=== PATIENT | male | born 1935 | race Caucasian/White ===

== ENCOUNTER → 2017-11-18 | Outpatient (CLI) | payer MEDICARE ==
[~2017-11-18] MED LIST: CENTTAB9 PO; LEVO100T5 PO; OCUVTAB4 PO; PREV30CA36 PO; [UNRECOGNIZED DRUG - CODE] PO
[2017-11-18 14:22] LABS: PROTHROMBIN TIME - PATIENT 10.2 SEC (9.8-11.6)
[2017-11-18 14:45] LABS: CREATININE 1.25 MG/DL (0.60-1.30)
== END ==
LOC: CPRE 12:43
PROVIDERS: ATTEND Orthopaedic Surgery Sports Medicine
DX: Z01.812 Encounter for preprocedural laboratory examination (principal); M17.11 Unilateral primary osteoarthritis, right knee; M25.50 Pain in unspecified joint; Z79.01 Long term (current) use of anticoagulants; Z96.60 Presence of unspecified orthopedic joint implant
CPT/HCPCS: 36415; 82565; 85610; 85652

== ENCOUNTER 2017-11-28 06:35 | Inpatient (IN) | payer OTHER, MEDICARE ==
[~2017-11-28] VITALS: Ht 198.1 cm; Wt 105.6 kg
[~2017-11-28 06:35] MED LIST changes: -CENTTAB9 PO; -[UNRECOGNIZED DRUG - CODE] PO
[2017-11-28] MEDS ORDERED: ceFAZolin 2 GM PREMIX 50 ML IV SCH (07:15)
[2017-11-28] MEDS ORDERED: VANCOMYCIN 1000 MG/NS 250 ML (for <70 kg) IV SCH ×2 (07:15)
[2017-11-28] MEDS ORDERED: DEXAMETHASONE SOD PHOS 20 MG/5 ML VIAL IV SCH (07:15)
[2017-11-28] MEDS ORDERED: POVIDONE IODINE 5% (ANTISEPSIS KIT) 4 APPLICATIONS EACH NARE PRN (07:15)
[2017-11-28] MEDS ORDERED: CHLORHEXIDINE GLUCONATE 4% SOLN 120 ML BTL TOPICAL SCH (07:15)
[2017-11-28] MEDS ORDERED: CHLORHEXIDINE GLUCONATE 2 % 1 PACK (2 CLOTHS) TOPICAL PRN (07:15)
[2017-11-28] MEDS ORDERED: LACTATED RINGER'S 1000 ML IV PRN (07:15)
[2017-11-28] MEDS ORDERED: METOPROLOL TARTRATE 25 MG TAB PO PRN (07:15)
[2017-11-28] MEDS ORDERED: POVIDONE IODINE 7.5% SCRUB 118 ML BOTTLE TOPICAL SCH (07:15)
[2017-11-28] MEDS ORDERED: SODIUM CHLORID 0.9% 500 ML IV PRN (07:15)
[2017-11-28] MEDS ORDERED: ASPI81CH6 CHEW (07:16)
[2017-11-28] MEDS ORDERED: HYDR-3288 PO (07:17)
[2017-11-28] MEDS ORDERED: MORPHINE SULFATE 4 MG/ML INJ IV PUSH PRN (07:45)
[2017-11-28] MEDS ORDERED: ONDANSETRON HCL 4 MG/2 ML VIAL IVP PRN (07:45)
[2017-11-28] MEDS ORDERED: BISACODYL 10 MG SUPP RECTAL PRN (08:00)
[2017-11-28] MEDS ORDERED: diphenhydrAMINE HCL 50 MG/ML VIAL IV PUSH PRN (08:00)
[2017-11-28] MEDS ORDERED: Post-op Orders (for Pharmacy) XX ONE (08:00)
[2017-11-28 08:14] VITALS: PULSE 60
[2017-11-28] MEDS ORDERED: BUPIVACAINE LIPOSOME PF 1.3% 20 ML VIAL ONE (08:29)
[2017-11-28] MEDS ORDERED: FAT EMULSION 20% INJ 0 ML ONE (08:32)
[2017-11-28] MEDS: PANTOPRAZOLE SOD 40 MG DELAYED RELEASE TAB PO SCH (09:00)
[2017-11-28] MEDS ORDERED: GENTAMICIN SULFATE 80 MG/2 ML VIAL ONE (09:29)
[2017-11-28] MEDS ORDERED: VANCOMYCIN HCL 1000 MG VIAL ONE (09:48)
[2017-11-28] MEDS ORDERED: SODIUM CHLOR 0.9% 250 ML INJ 250 ML ONE (09:48)
[2017-11-28] MEDS ORDERED: SODIUM CHLORIDE 0.9% IV SCH (10:00)
[2017-11-28] MEDS ORDERED: TRANEXAMIC PERI-ARTICULAR 3,000 MG/NS 100 ML P-ARTICULR SCH ×2 (10:00)
[2017-11-28] MEDS ORDERED: ROPIVACAINE PERI-ARTICULAR INJECTION. P-ARTICULR SCH ×5 (10:00)
[2017-11-28] MEDS ORDERED: TRANEXAMIC ACID IV SCH (10:00)
[2017-11-28] MEDS ORDERED: DO NOT ADM ANY ANTICOAGULANT DRUGS PRN (11:43)
[2017-11-28] MEDS ORDERED: MIDAZOLAM HCL 2 MG/2 ML VIAL ONE (11:48)
[2017-11-28] MEDS ORDERED: *morphine SULFATE 10 MG/ML PERIprocedure ONLY ONE ×2 (11:50→12:08)
[2017-11-28] MEDS ORDERED: DEXAMETHASONE SOD PHOS 4 MG/ML VIAL IV ONE (12:00)
[2017-11-28] MEDS ORDERED: ONDANSETRON HCL 4 MG/2 ML VIAL IV ONE (12:00)
[2017-11-28] MEDS ORDERED: LACTATED RINGER'S 1000 ML INJ 1,000 ML IV ONE (12:00)
[2017-11-28] MEDS ORDERED: PROPOFOL 200 MG/20 ML AMP IV ONE (12:00)
[2017-11-28] MEDS ORDERED: ROCURONIUM INJ 50 MG/5 ML SYRINGE IV PUSH ONE (12:00)
[2017-11-28] MEDS ORDERED: LIDOCAINE HCL 1% PF 5 ML SYRINGE OTHER ONE (12:00)
--- NOTE | 2017-11-28 12:35 | RADRPT ---
EXAM DATE/TIME: 11/28/2017 12:11 [facility] COMPARISON: No previous studies available for comparison. INDICATIONS : Post op, right knee replacement. MEDICAL HISTORY : None. SURGICAL HISTORY : None. ENCOUNTER: Initial ACUITY: 1 day PAIN SCORE: 0/10 LOCATION: Right knee FINDINGS: Postoperative right total knee replacement. Normal alignment. Air in the soft tissues. CONCLUSION: 1. Postoperative right total knee replacement. No complications identified. Jose Plata MD on November 28, 2017 at 12:32 Board Certified Radiologist. This report was verified electronically.
[2017-11-28] MEDS ORDERED: HYDROmorphone HCL PF 2 MG/ML VIAL ONE (12:46)
[2017-11-28] MEDS: SODIUM CHLOR 0.9% 1000 ML INJ 1,000 ML IV SCH ×3 (13:00→21:39)
--- NOTE | 2017-11-28 13:50 | PD.CONS ---
[facility] By [facility] Reason for Consult Medical Management Primary Care Physician Hai Clayton M.D. 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 Patient was seen postoperatively in PACU and He has no complaint of chest pain or shortness of breath. Review of Systems Except as stated in HPI: all other systems reviewed are Neg Past Family Social History Allergies: Coded Allergies: No Known Allergies (Verified Allergy, Unknown, 11/28/17) Past Medical History Severe right OA Hypothyroidism CAD Past Surgical History back surgeries pacemaker placement Reported Medications See EMR Family History Noncontributory Social History Patient denies tobacco, alcohol or illicit drug intake Physical Exam Vital Signs Vital Signs Date Time Temp Pulse Resp B/P (MAP) Pulse Ox O2 Delivery O2 Flow Rate FiO2 11/28/17 13:16 15 11/28/17 13:00 97.5 60 15 120/61 (80) 97 Nasal Cannula 2 11/28/17 12:45 60 15 119/59 (79) 96 Nasal Cannula 2 11/28/17 12:30 60 16 121/60 (80) 100 Nasal Cannula 3 11/28/17 12:15 60 15 123/62 (82) 99 Nasal Cannula 3 11/28/17 12:13 15 11/28/17 12:00 60 15 126/67 (86) 98 Nasal Cannula 3 11/28/17 11:55 15 11/28/17 11:55 15 11/28/17 11:45 69 15 131/76 (94) 100 Nasal Cannula 4 11/28/17 11:40 97.8 72 20 130/73 (92) 96 Nasal Cannula 4 11/28/17 08:14 60 11/28/17 08:14 100 Nasal Cannula 2 11/28/17 07:15 98.5 71 16 143/85 (104) 100 Physical Exam GENERAL: This is a well-nourished, well-developed patient, in no apparent distress. SKIN: No rashes, ecchymoses or lesions. Cool and dry. HEAD: Atraumatic. Normocephalic. No temporal or scalp tenderness. EYES: Pupils equal round and reactive. Extraocular motions intact. No scleral icterus. No injection or drainage. ENT: Nose without bleeding, purulent drainage or septal hematoma. Throat without erythema, tonsillar hypertrophy or exudate. Uvula midline. Airway patent. NECK: Trachea midline. No JVD or lymphadenopathy. Supple, nontender, no meningeal signs. CARDIOVASCULAR: Regular rate and rhythm without murmurs, gallops, or rubs. RESPIRATORY: Clear to auscultation. Breath sounds equal bilaterally. No wheezes , rales, or rhonchi. GASTROINTESTINAL: Abdomen soft, non-tender, nondistended. No hepato-splenomegaly , or palpable masses. No guarding. MUSCULOSKELETAL: Extremities without clubbing, cyanosis, or edema. s/p right knee surgery; dressing in place-neurovascular intact NEUROLOGICAL: Awake and alert. Cranial nerves II through XII intact. Motor and sensory grossly within normal limits. Five out of 5 muscle strength in all muscle groups. Normal speech. Imaging Last Impressions Knee X-Ray 11/28/17 0714 Signed Impressions: Service Date/Time: Tuesday, November 28, 2017 12:11 - CONCLUSION: 1. Postoperative right total knee replacement. No complications identified. Jose Plata MD Assessment and Plan Assessment and Plan 82 years old male with s/p Right total knee arthroplasty Management per Ortho Continue with current post op management DVT prophylaxis per orthopedic surgery PT consult to treat and eval Hypothyroidism Continue with Synthroid CAD Continue with outpatient medications DVT prophylaxis: Lovenox Thank you for this consultation Code Status Full code Discussed Condition With Patient, PACU nurse Melchor Mcfarland MD Nov 28, 2017 13:49
[2017-11-28 16:00] VITALS: BP 144/73; PULSE 62; RESP 16; TEMP 96.2; O2SAT 98
--- NOTE | 2017-11-28 16:10 | HHI.DCPOC ---
Discharge Care Plan Diagnosis: (1) Primary localized osteoarthrosis, lower leg Your Health Problems Are: Difficulty with ADL Goals to Promote Your Health * To prevent worsening of your condition and complications * To maintain your health at the optimal level Directions to Meet Your Goals Take your medications as prescribed Follow your dietary instruction Follow activity as directed Keep your appointments as scheduled Take your immunizations and boosters as scheduled If your symptoms worsen call your PCP, if no PCP go to Urgent Care Center or Emergency Room Smoking is Dangerous to Your Health. Avoid second hand smoke Call the 24-hour hour crisis hotline for domestic abuse at Jason Lehman Nov 28, 2017 16:10
[2017-11-28] MEDS ORDERED: CPMMACHINE (16:11)
[2017-11-28] MEDS ORDERED: WALKER WHEELS/F1 MIS (16:11)
--- NOTE | 2017-11-28 16:11 | HHI.FF ---
Face to Face Verification Diagnosis: (1) Primary localized osteoarthrosis, lower leg Physical Therapy Gait training, Safety evaluation, Transfer training, bed to chair Knee: Total knee, Protocol: Right, Full weight bearing Right LE Weight Bearing: WB as tolerated Nursing RN: 3 days/week x 2 weeks Nursing: Dressing changes Dressing Changes: Daily dressing change I have seen patient Bertram Frederick on 11/28/17. My clinical findings support the need for the requested home health care services because: Limited ability to care for self High risk of falls I certify that my clinical findings support that this patient is homebound because: Post-op weakness Unsteady gait/balance Jason Lehman Nov 28, 2017 16:11
--- NOTE | 2017-11-28 16:13 | PD.ORT.PN ---
Objective Vitals Vital Signs Date Time Temp Pulse Resp B/P (MAP) Pulse Ox O2 Delivery O2 Flow Rate FiO2 11/28/17 14:15 97.6 61 16 120/58 (78) 96 Room Air 11/28/17 14:00 63 16 122/60 (80) 94 Room Air 11/28/17 13:30 62 16 121/59 (79) 99 Nasal Cannula 2 11/28/17 13:16 15 11/28/17 13:00 97.5 60 15 120/61 (80) 97 Nasal Cannula 2 11/28/17 12:45 60 15 119/59 (79) 96 Nasal Cannula 2 11/28/17 12:30 60 16 121/60 (80) 100 Nasal Cannula 3 11/28/17 12:15 60 15 123/62 (82) 99 Nasal Cannula 3 11/28/17 12:13 15 11/28/17 12:00 60 15 126/67 (86) 98 Nasal Cannula 3 11/28/17 11:55 15 11/28/17 11:55 15 11/28/17 11:45 69 15 131/76 (94) 100 Nasal Cannula 4 11/28/17 11:40 97.8 72 20 130/73 (92) 96 Nasal Cannula 4 11/28/17 08:14 60 11/28/17 08:14 100 Nasal Cannula 2 11/28/17 07:15 98.5 71 16 143/85 (104) 100 I/O 11/27/17 11/27/17 11/27/17 11/28/17 11/28/17 11/28/17 07:00 15:00 23:00 07:00 15:00 23:00 Intake Total 1640 ml Output Total 600 ml Balance 1040 ml Intake IV Total 1640 ml Output Urine Total 400 ml Estimated Blood Loss 200 ml Imaging Last 24 hours Impressions Knee X-Ray 11/28/17 0714 Signed Impressions: Service Date/Time: Tuesday, November 28, 2017 12:11 - CONCLUSION: 1. Postoperative right total knee replacement. No complications identified. Jose Plata MD Assessment & Plan Ortho Post Op Day #: 0 Problem List: Assessment and Plan s/p R TKA POD#0 wbat ok to maintain dressing unless saturated lovenox, d/c on asa81 d/c planning home vs snf rx in chart f/up dr. michel 2 weeks Jason Lehman Nov 28, 2017 16:13
[2017-11-28] MEDS ORDERED: ENALAPRILAT 2.5 MG/2 ML VIAL IV PUSH PRN (16:15)
--- NOTE | 2017-11-28 17:37 | MP ---
cc: Jason Ponce MD DATE OF OPERATION: 11/28/2017 PREOPERATIVE DIAGNOSIS: Right knee osteoarthritis. POSTOPERATIVE DIAGNOSIS: Right knee osteoarthritis. PROCEDURE: Right total knee arthroplasty. SURGEON: Jason Ponce MD LOADING DOCK HELPER: FRITZ Garcia ANESTHESIA: General with a femoral nerve adductor canal block. ESTIMATED BLOOD LOSS: 200 mL TOURNIQUET TIME: 25 minutes at 250 mmHg. COMPLICATIONS: None. IMPLANTS USED: DePuy Attune size 8 posterior stabilized femoral component, size 9 rotating platform tibial baseplate, size 6 mm polyethylene tibial insert, size 41 patella. JUSTIFICATION: This patient is an 82-year-old male with history of severe end-stage osteoarthritis involving the right knee. He has severe disabling pain with standing, walking, ambulation, weight bearing activities and severe pain at rest. He has failed greater than 3 months of nonoperative conservative treatment to include medication therapy, injection, ambulatory assistive aid, home exercise program, activity modification. Patient is not overweight. X-rays of the right knee reveal severe end-stage osteoarthritis, joint space narrowing, subchondral sclerosis, subchondral cyst osteophyte formation with subluxation and deformity. The patient was counseled on risks, benefits and alternatives to a total knee arthroplasty. The risks of surgery were discussed which include but are not limited to anesthesia, bleeding, infection, damage to nerves, blood vessels, pain and stiffness, failure of components, blood clots, pulmonary embolism and even . The patent's pain is severe. She favors the benefits over the risks and did wish to proceed with surgery. PROCEDURE IN DETAIL: Written consent was obtained. The patient was identified by name, taken to the operating room and placed supine on the operating room table. General anesthesia was administered as well as 2 grams of IV Ancef, 1 gram of IV vancomycin. He did receive a femoral nerve adductor canal block. A well-padded tourniquet was placed on the right thigh. The right lower extremity was prepped and draped using Isopropyl alcohol, Hibiclens solution and ChloraPrep solution. After a timeout was performed, an Esmarch bandage was used to exsanguinate the right lower extremity. The tourniquet was inflated to 250 mmHg. A longitudinal incision was made over the anterior aspect of the right knee. A medial parapatellar arthrotomy was performed. The patella was everted and patella resection guide was used to resect 9 mm of patella. A size 41 mm guide was placed, 3 drill holes were placed and a 41 mm trial fit well. Attention was turned to the femur where an intramedullary guide was placed and the distal femoral guide was set to remove 11 mm of distal femur. An oscillating saw was used to perform a distal femoral cut. Attention was turned to the tibia where an extramedullary tibial guide was set to remove 6 mm off the lowest portion of the medial tibial plateau. Tibial guide was pinned in place and a tibial cut was performed. A 5 mm spacer block showed full extension. Attention was turned back to the femur where the AP sizer measured a size 8. The anterior reference 3-degree external rotator guide was used to pin a size [address] The anterior, posterior and chamfer cuts were performed. A size 8 PCL box guide was pinned in place and PCL was box cut with an oscillating saw. The medial lateral meniscus remnants were removed as well as bone, soft tissue and debris from posterior portion of the knee. A size 9 tibia baseplate was pinned in place and tibia was drilled to punch. Trial components were evaluated and final components were pinned in place. With the current components, the leg achieved full extension to 0 degrees and flexion to 140. No evidence of tibial lift-off. Varus-valgus balance appeared appropriate and symmetric and the patella was noted to track centrally. With the tourniquet deflated, Bovie cautery was used for hemostasis. The surgical wound was thoroughly irrigated with sterile saline, pulse lavage, antibiotic impregnated solution. The arthrotomy incision was closed with #1 Vicryl sutures, subcutaneous layer with 2-0 Vicryl suture. The skin was closed with Dermabond. Sterile dressing was applied. The patient tolerated the procedure well. There were no intraoperative complications noted. Reji Lehman, physician teacher's assistant certified, was present during the entire procedure to include patient positioning and the procedure itself. The medical necessity of a physician teacher's assistant was indicated in this case due to complexity of the procedure. He assisted with appropriate manipulation of the leg and also retraction of muscle, tendon, bone and neurovascular structures. He assisted with preparation of bone, also implantation of the prosthetic replacement. MD DAMIEN Dejesus//berenice , 11:21 AM , 05:13 PM
[2017-11-28 19:36] VITALS: BP 124/59; PULSE 67; RESP 18; TEMP 96.7; O2SAT 95
[2017-11-28] MEDS ORDERED: ZOLPIDEM TARTRATE 5 MG TAB PO PRN (21:00)
[2017-11-28 23:39] VITALS: BP 104/65; PULSE 68; RESP 18; TEMP 97.1; O2SAT 97
[2017-11-29] MEDS: SODIUM CHLOR 0.9% 1000 ML INJ 1,000 ML IV SCH ×2 (00:35→19:21)
[2017-11-29] MEDS: ACETAMINOPHEN/HYDROcodone 325 MG/7.5 MG TAB PO PRN ×5 (02:11→21:45)
[2017-11-29 03:50] VITALS: BP 104/61; PULSE 61; RESP 18; TEMP 97; O2SAT 96
[2017-11-29] MEDS: LEVOTHYROXINE SODIUM 100 MCG TAB PO SCH (05:17)
[2017-11-29 06:59] LABS: HEMATOCRIT 29.1 % (39.0-51.0); HEMOGLOBIN 10.1 GM/DL (13.0-17.0); MEAN CELL VOLUME 93.3 FL (80.0-100.0); MEAN CORPUSCULAR HEMOGLOBIN 32.3 PG (27.0-34.0); MEAN CORPUSCULAR HGB CONC 34.7 % (32.0-36.0); PLATELET COUNT 152 TH/MM3 (150-450); RED BLOOD COUNT 3.12 MIL/MM3 (4.50-5.90); RED CELL DISTRIBUTION WIDTH 13.6 % (11.6-17.2); WHITE BLOOD COUNT 9.3 TH/MM3 (4.0-11.0)
[2017-11-29 07:26] LABS: BICARBONATE 24.6 MEQ/L (21.0-32.0); CALCIUM 8.4 MG/DL (8.5-10.1); CREATININE 1.27 MG/DL (0.60-1.30)
[2017-11-29 08:00] VITALS: BP 131/67; PULSE 75; RESP 16; TEMP 98.5; O2SAT 99
[2017-11-29] MEDS: PANTOPRAZOLE SOD 40 MG DELAYED RELEASE TAB PO SCH (08:54)
--- NOTE | 2017-11-29 11:04 | HHI.PR ---
Subjective Remarks Patient seen and examined Pain well tolerated Vitals stable Family by the bedside Objective Vitals Vital Signs Date Time Temp Pulse Resp B/P (MAP) Pulse Ox O2 Delivery O2 Flow Rate FiO2 11/29/17 08:00 98.5 75 16 131/67 (88) 99 11/29/17 03:50 97.0 61 18 104/61 (75) 96 11/28/17 23:39 97.1 68 18 104/65 (78) 97 11/28/17 19:36 96.7 67 18 124/59 (80) 95 11/28/17 16:00 96.2 62 16 144/73 (96) 98 11/28/17 14:15 97.6 61 16 120/58 (78) 96 Room Air 11/28/17 14:00 63 16 122/60 (80) 94 Room Air 11/28/17 13:30 62 16 121/59 (79) 99 Nasal Cannula 2 11/28/17 13:16 15 11/28/17 13:00 97.5 60 15 120/61 (80) 97 Nasal Cannula 2 11/28/17 12:45 60 15 119/59 (79) 96 Nasal Cannula 2 11/28/17 12:30 60 16 121/60 (80) 100 Nasal Cannula 3 11/28/17 12:15 60 15 123/62 (82) 99 Nasal Cannula 3 11/28/17 12:13 15 11/28/17 12:00 60 15 126/67 (86) 98 Nasal Cannula 3 11/28/17 11:55 15 11/28/17 11:55 15 11/28/17 11:45 69 15 131/76 (94) 100 Nasal Cannula 4 11/28/17 11:40 97.8 72 20 130/73 (92) 96 Nasal Cannula 4 I/O 11/28/17 11/28/17 11/28/17 11/29/17 11/29/17 11/29/17 07:00 15:00 23:00 07:00 15:00 23:00 Intake Total 1640 ml 100 ml 1600 ml Output Total 600 ml 250 ml Balance 1040 ml 100 ml 1350 ml Intake IV Total 1640 ml 100 ml 1600 ml Output Urine Total 400 ml 250 ml Estimated Blood Loss 200 ml Result Diagram: 11/29/17 0600 11/29/17 0600 Imaging Last Impressions Knee X-Ray 11/28/17 0714 Signed Impressions: Service Date/Time: Tuesday, November 28, 2017 12:11 - CONCLUSION: 1. Postoperative right total knee replacement. No complications identified. Jose Plata MD Objective Remarks GENERAL: nad SKIN: Warm and dry. HEAD: Normocephalic. EYES: No scleral icterus. No injection or drainage. NECK: Supple, trachea midline. No JVD or lymphadenopathy. CARDIOVASCULAR: Regular rate and rhythm without murmurs, gallops, or rubs. RESPIRATORY: Breath sounds equal bilaterally. No accessory muscle use. GASTROINTESTINAL: Abdomen soft, non-tender, nondistended. MUSCULOSKELETAL: No cyanosis, or edema. BACK: Nontender without obvious deformity. No CVA tenderness. A/P Assessment and Plan 82 years old male with s/p Right total knee arthroplasty Management per Ortho Continue with current post op management DVT prophylaxis per orthopedic surgery PT consult to treat and eval Hypothyroidism Continue with Synthroid CAD Continue with outpatient medications DVT prophylaxis: Melchor Walker MD Nov 29, 2017 11:04
[2017-11-29 12:00] VITALS: BP 108/52; PULSE 68; RESP 16; TEMP 98.2; O2SAT 98
[2017-11-29] MEDS: ENOXAPARIN SODIUM 40 MG/0.4 ML SYRINGE SQ SCH (12:26)
[2017-11-29 16:00] VITALS: BP 149/72; PULSE 70; RESP 16; TEMP 98; O2SAT 96
--- NOTE | 2017-11-29 17:49 | HHI.PR ---
Subjective Remarks pain controlled. walking. using cpm Objective Vital Signs Date Time Temp Pulse Resp B/P (MAP) Pulse Ox O2 Delivery O2 Flow Rate FiO2 11/29/17 12:00 98.2 68 16 108/52 (70) 98 11/29/17 08:00 98.5 75 16 131/67 (88) 99 11/29/17 03:50 97.0 61 18 104/61 (75) 96 11/28/17 23:39 97.1 68 18 104/65 (78) 97 11/28/17 19:36 96.7 67 18 124/59 (80) 95 I/O 11/28/17 11/28/17 11/28/17 11/29/17 11/29/17 11/29/17 07:00 15:00 23:00 07:00 15:00 23:00 Intake Total 1640 ml 100 ml 1600 ml Output Total 600 ml 250 ml Balance 1040 ml 100 ml 1350 ml Intake IV Total 1640 ml 100 ml 1600 ml Output Urine Total 400 ml 250 ml Estimated Blood Loss 200 ml Result Diagram: 11/29/17 0600 11/29/17 0600 Objective Remarks RLE: dressing CDI, soft compartments, SILT distally Assessment and Plan Physician Attestation s/p R TKA POD#1 doing well wbat ok to maintain dressing unless saturated lovenox, d/c on asa81 SNF tomorrow rx in chart f/up dr. michel 2 weeks Ankush Roque Jr., MD Nov 29, 2017 17:49
[2017-11-29] MEDS: MULTIVITAMINS/MINERALS THERAPEUTIC TAB PO SCH (19:21)
[2017-11-29] MEDS: DOCUSATE SODIUM 100 MG CAP PO SCH (19:21)
[2017-11-29 20:30] VITALS: BP 119/61; PULSE 66; RESP 17; TEMP 98.9; O2SAT 96
[2017-11-30 00:35] VITALS: BP 139/79; PULSE 79; RESP 18; TEMP 99.3; O2SAT 96
[2017-11-30] MEDS: ACETAMINOPHEN/HYDROcodone 325 MG/7.5 MG TAB PO PRN ×6 (03:48→21:17)
[2017-11-30] MEDS: MAGNESIUM HYDROXIDE SUSP 30 ML CUP PO PRN ×2 (05:55→21:11)
[2017-11-30] MEDS: LEVOTHYROXINE SODIUM 100 MCG TAB PO SCH (05:55)
[2017-11-30 08:00] VITALS: BP 117/56; PULSE 75; RESP 16; TEMP 98.6; O2SAT 95
[2017-11-30 08:20] LABS: HEMATOCRIT 26.1 % (39.0-51.0); HEMOGLOBIN 9.1 GM/DL (13.0-17.0); MEAN CELL VOLUME 92.9 FL (80.0-100.0); MEAN CORPUSCULAR HEMOGLOBIN 32.5 PG (27.0-34.0); MEAN CORPUSCULAR HGB CONC 34.9 % (32.0-36.0); MEAN PLATELET VOLUME 8.1 FL (7.0-11.0); PLATELET COUNT 116 TH/MM3 (150-450); RED BLOOD COUNT 2.81 MIL/MM3 (4.50-5.90); RED CELL DISTRIBUTION WIDTH 13.4 % (11.6-17.2); WHITE BLOOD COUNT 6.3 TH/MM3 (4.0-11.0)
[2017-11-30] MEDS: PANTOPRAZOLE SOD 40 MG DELAYED RELEASE TAB PO SCH (08:28)
[2017-11-30] MEDS: MULTIVITAMINS/MINERALS THERAPEUTIC TAB PO SCH ×2 (08:28→21:11)
[2017-11-30] MEDS: DOCUSATE SODIUM 100 MG CAP PO SCH ×2 (08:28→21:11)
[2017-11-30] MEDS: ENOXAPARIN SODIUM 40 MG/0.4 ML SYRINGE SQ SCH (08:29)
[2017-11-30 08:47] LABS: BICARBONATE 26.7 MEQ/L (21.0-32.0); CALCIUM 7.9 MG/DL (8.5-10.1); CREATININE 1.06 MG/DL (0.60-1.30)
--- NOTE | 2017-11-30 09:35 | HHI.PR ---
Subjective Remarks Patient seen and examined States, he has some burning type of pain to his right knee otherwise stable Objective Vitals Vital Signs Date Time Temp Pulse Resp B/P (MAP) Pulse Ox O2 Delivery O2 Flow Rate FiO2 11/30/17 00:35 99.3 79 18 139/79 (99) 96 11/29/17 20:30 98.9 66 17 119/61 (80) 96 11/29/17 16:00 98.0 70 16 149/72 (97) 96 11/29/17 12:00 98.2 68 16 108/52 (70) 98 I/O 11/29/17 11/29/17 11/29/17 11/30/17 11/30/17 11/30/17 07:00 15:00 23:00 07:00 15:00 23:00 Intake Total 1600 ml 1080 ml 360 ml Output Total 250 ml 1200 ml Balance 1350 ml -120 ml 360 ml Intake Oral 1080 ml 360 ml IV Total 1600 ml Output Urine Total 250 ml 1200 ml # Voids 1 1 # Bowel Movements 0 0 Result Diagram: 11/30/1731 11/30/17 0731 Objective Remarks GENERAL: nad SKIN: Warm and dry. HEAD: Normocephalic. EYES: No scleral icterus. No injection or drainage. NECK: Supple, trachea midline. No JVD or lymphadenopathy. CARDIOVASCULAR: Regular rate and rhythm without murmurs, gallops, or rubs. RESPIRATORY: Breath sounds equal bilaterally. No accessory muscle use. GASTROINTESTINAL: Abdomen soft, non-tender, nondistended. MUSCULOSKELETAL: No cyanosis, or edema. BACK: Nontender without obvious deformity. No CVA tenderness. A/P Assessment and Plan 82 years old male with s/p Right total knee arthroplasty Management per Ortho Continue with current post op management DVT prophylaxis per orthopedic surgery PT consult to treat and eval Hypothyroidism Continue with Synthroid CAD Continue with outpatient medications DVT prophylaxis: Lovenox, however will discharge on aspirin Melchor Mcfarland MD Nov 30, 2017 09:35
[2017-11-30] MEDS: SODIUM CHLOR 0.9% 1000 ML INJ 1,000 ML IV SCH ×2 (09:45→19:45)
[2017-11-30 12:00] VITALS: BP 131/65; PULSE 65; RESP 16; TEMP 98.7; O2SAT 98
--- NOTE | 2017-11-30 12:06 | RADRPT ---
EXAM DATE/TIME: 11/30/2017 11:30 [facility] COMPARISON: No previous studies available for comparison. INDICATIONS : Right leg swelling. MEDICAL HISTORY : Hepatitis C, treated with interferon in the . gerd. SURGICAL HISTORY : Total knee replacement. Partial thyroidectomy. Pacemaker.Lumbar fusion. ENCOUNTER: Initial ACUITY: 1 day PAIN SCORE: 3/10 LOCATION: Right leg. TECHNIQUE: Venous ultrasound of the leg was performed from the inguinal ligament to the proximal calf. Real-mychal e, color Doppler and spectral tracing, compression and augmentation techniques were used. FINDINGS: There is normal compressibility of the deep venous system from the inguinal region to the proximal ca lf. No echogenic clot is seen in the lumen of the common femoral, femoral, popliteal, and posterior tibial veins. There is a normal response of the venous system to proximal and distal augmentation an d respiration. CONCLUSION: Normal examination. Tristian Wallace MD on November 30, 2017 at 12:05 Board Certified Radiologist. This report was verified electronically.
--- NOTE | 2017-11-30 13:28 | PD.ORT.PN ---
Subjective Subjective Remarks no CP/SOB. no other issues Objective Vitals Vital Signs Date Time Temp Pulse Resp B/P (MAP) Pulse Ox O2 Delivery O2 Flow Rate FiO2 11/30/17 00:35 99.3 79 18 139/79 (99) 96 11/29/17 20:30 98.9 66 17 119/61 (80) 96 11/29/17 16:00 98.0 70 16 149/72 (97) 96 I/O 11/29/17 11/29/17 11/29/17 11/30/17 11/30/17 11/30/17 07:00 15:00 23:00 07:00 15:00 23:00 Intake Total 1600 ml 1080 ml 360 ml Output Total 250 ml 1200 ml Balance 1350 ml -120 ml 360 ml Intake Oral 1080 ml 360 ml IV Total 1600 ml Output Urine Total 250 ml 1200 ml # Voids 1 1 # Bowel Movements 0 0 Result Diagram: 11/30/17 0731 11/30/17 0731 Imaging Last 24 hours Impressions Knee X-Ray 11/28/17 0714 Signed Impressions: Service Date/Time: Tuesday, November 28, 2017 12:11 - CONCLUSION: 1. Postoperative right total knee replacement. No complications identified. Jose Plata MD Objective Remarks aaox3. nad RLE: nvi. dressing CDI. neg homans Assessment & Plan Assessment and Plan s/p TKA POD#1 pain issues when OOB. no CP/SOB wbat ok to maintain dressing unless saturated lovenox, d/c on asa81 d/c planning SNF rx in chart f/up dr. michel 2 weeks DATE OF VISIT: 11/29/2017 Ankush Roque Jr., MD Nov 30, 2017 13:28
--- NOTE | 2017-11-30 13:33 | PD.ORT.PN ---
Subjective Subjective Remarks right calf pain and swelling. no CP/SOB. no other issues Objective Vitals Vital Signs Date Time Temp Pulse Resp B/P (MAP) Pulse Ox O2 Delivery O2 Flow Rate FiO2 11/30/17 00:35 99.3 79 18 139/79 (99) 96 11/29/17 20:30 98.9 66 17 119/61 (80) 96 11/29/17 16:00 98.0 70 16 149/72 (97) 96 I/O 11/29/17 11/29/17 11/29/17 11/30/17 11/30/17 11/30/17 07:00 15:00 23:00 07:00 15:00 23:00 Intake Total 1600 ml 1080 ml 360 ml Output Total 250 ml 1200 ml Balance 1350 ml -120 ml 360 ml Intake Oral 1080 ml 360 ml IV Total 1600 ml Output Urine Total 250 ml 1200 ml # Voids 1 1 # Bowel Movements 0 0 Result Diagram: 11/30/1731 11/30/1731 Imaging Last 24 hours Impressions Knee X-Ray 11/28/17713 Signed Impressions: Service Date/Time: Tuesday, November 28, 2017 12:11 - CONCLUSION: 1. Postoperative right total knee replacement. No complications identified. Jose Plata MD Objective Remarks aaox3. nad walking with PT RLE: grossly nvi. dressing CDI. neg NILAM phillips distally Assessment & Plan Assessment and Plan s/p R TKA POD#2 c/o calf pain and swelling- DVT U/S negative no other issues. doing well. no CP/SOB wbat ok to maintain dressing unless saturated lovenox, d/c on asa81 d/c planning SNF tomorrow rx in chart f/up dr. michel 2 weeks Ankush Roque Jr., MD Nov 30, 2017 13:33
[2017-11-30 20:27] VITALS: BP 130/63; PULSE 93; RESP 19; TEMP 99.8; O2SAT 97
[2017-12-01 00:32] VITALS: BP 157/71; PULSE 79; RESP 19; TEMP 97.5; O2SAT 99
[2017-12-01] MEDS: ACETAMINOPHEN/HYDROcodone 325 MG/7.5 MG TAB PO PRN ×4 (01:52→16:02)
[2017-12-01] MEDS: SODIUM CHLOR 0.9% 1000 ML INJ 1,000 ML IV SCH (05:45)
[2017-12-01] MEDS: LEVOTHYROXINE SODIUM 100 MCG TAB PO SCH (05:52)
[2017-12-01 07:10] LABS: HEMATOCRIT 26.2 % (39.0-51.0); HEMOGLOBIN 9.2 GM/DL (13.0-17.0); MEAN CELL VOLUME 92.1 FL (80.0-100.0); MEAN CORPUSCULAR HEMOGLOBIN 32.5 PG (27.0-34.0); MEAN CORPUSCULAR HGB CONC 35.3 % (32.0-36.0); MEAN PLATELET VOLUME 7.7 FL (7.0-11.0); PLATELET COUNT 118 TH/MM3 (150-450); RED BLOOD COUNT 2.84 MIL/MM3 (4.50-5.90); RED CELL DISTRIBUTION WIDTH 13.5 % (11.6-17.2); WHITE BLOOD COUNT 6.6 TH/MM3 (4.0-11.0)
[2017-12-01 07:15] VITALS: PULSE 63
[2017-12-01 07:56] LABS: BICARBONATE 26.6 MEQ/L (21.0-32.0); CALCIUM 7.9 MG/DL (8.5-10.1); CREATININE 1.07 MG/DL (0.60-1.30)
[2017-12-01 08:00] VITALS: BP 123/62; PULSE 63; RESP 18; TEMP 95.9; O2SAT 95
[2017-12-01] MEDS: PANTOPRAZOLE SOD 40 MG DELAYED RELEASE TAB PO SCH (08:00)
[2017-12-01] MEDS: DOCUSATE SODIUM 100 MG CAP PO SCH (08:00)
[2017-12-01] MEDS: MULTIVITAMINS/MINERALS THERAPEUTIC TAB PO SCH (08:00)
[2017-12-01] MEDS: ENOXAPARIN SODIUM 40 MG/0.4 ML SYRINGE SQ SCH (08:03)
[2017-12-01] MEDS: MAGNESIUM HYDROXIDE SUSP 30 ML CUP PO PRN (08:08)
--- NOTE | 2017-12-01 10:16 | HHI.PR ---
Subjective Remarks Patient seen and examined, He ambulated without any right knee pain yesterday DVT was ruled out from the right knee with a negative Doppler Objective Vitals Vital Signs Date Time Temp Pulse Resp B/P (MAP) Pulse Ox O2 Delivery O2 Flow Rate FiO2 12/01/17 08:00 95.9 63 18 123/62 (82) 95 12/01/17 07:15 63 12/01/17 00:32 97.5 79 19 157/71 (99) 99 11/30/17 20:27 99.8 93 19 130/63 (85) 97 11/30/17 18:24 20 11/30/17 14:58 20 11/30/17 12:00 98.7 65 16 131/65 (87) 98 I/O 11/30/17 11/30/17 11/30/17 12/01/17 12/01/17 12/01/17 07:00 15:00 23:00 07:00 15:00 23:00 Intake Total 360 ml 960 ml 360 ml Output Total 1650 ml 600 ml Balance 360 ml -690 ml -240 ml Intake Oral 360 ml 960 ml 360 ml Output Urine Total 1650 ml 600 ml # Voids 1 # Bowel Movements 0 0 0 Result Diagram: 12/01/17 0651 12/01/17 0651 Imaging Last Impressions Lower Extremity Ultrasound 11/30/17 0000 Signed Impressions: Service Date/Time: Thursday, November 30, 2017 11:30 - CONCLUSION: Normal examination. Tristian Wallace MD Knee X-Ray 11/28/17 0714 Signed Impressions: Service Date/Time: Tuesday, November 28, 2017 12:11 - CONCLUSION: 1. Postoperative right total knee replacement. No complications identified. Jose Plata MD Objective Remarks GENERAL: nad SKIN: Warm and dry. HEAD: Normocephalic. EYES: No scleral icterus. No injection or drainage. NECK: Supple, trachea midline. No JVD or lymphadenopathy. CARDIOVASCULAR: Regular rate and rhythm without murmurs, gallops, or rubs. RESPIRATORY: Breath sounds equal bilaterally. No accessory muscle use. GASTROINTESTINAL: Abdomen soft, non-tender, nondistended. MUSCULOSKELETAL: No cyanosis, or edema. BACK: Nontender without obvious deformity. No CVA tenderness. A/P Assessment and Plan 82 years old male with s/p Right total knee arthroplasty Management per Ortho Continue with current post op management PT to treat and eval Hypothyroidism Continue with Synthroid CAD Continue with outpatient medications DVT prophylaxis: Lovenox, however will discharge on aspirin Melchor Mcfarland MD Dec 01, 2017 10:16
[2017-12-01 12:00] VITALS: BP 129/60; PULSE 78; RESP 18; TEMP 96.5; O2SAT 94
--- NOTE | 2017-12-01 13:42 | PD.ORT.PN ---
Subjective Post Op Day #: 3 Subjective Remarks doing well. knee sore. Objective Vitals Vital Signs Date Time Temp Pulse Resp B/P (MAP) Pulse Ox O2 Delivery O2 Flow Rate FiO2 12/01/17 08:00 95.9 63 18 123/62 (82) 95 12/01/17 07:15 63 12/01/17 00:32 97.5 79 19 157/71 (99) 99 11/30/17 20:27 99.8 93 19 130/63 (85) 97 11/30/17 18:24 20 11/30/17 14:58 20 I/O 11/30/17 11/30/17 11/30/17 12/01/17 12/01/17 12/01/17 07:00 15:00 23:00 07:00 15:00 23:00 Intake Total 360 ml 960 ml 360 ml Output Total 1650 ml 600 ml Balance 360 ml -690 ml -240 ml Intake Oral 360 ml 960 ml 360 ml Output Urine Total 1650 ml 600 ml # Voids 1 # Bowel Movements 0 0 0 Result Diagram: 12/01/17 0651 12/01/17 0651 Imaging Last 24 hours Impressions Knee X-Ray 11/28/17 0714 Signed Impressions: Service Date/Time: Tuesday, November 28, 2017 12:11 - CONCLUSION: 1. Postoperative right total knee replacement. No complications identified. Jose Plata MD Objective Remarks in bed, nad, using cpm. daughter in room dressing c/d/i neg homans nvi Assessment & Plan Ortho Post Op Day #: 3 Problem List: Assessment and Plan s/p TKA POD#3 pain improving. no CP/SOB wbat ok to maintain dressing unless saturated lovenox, d/c on [id number] d/c planning SNF - cleared today US neg for DVT rx in chart f/up dr. michel 2 weeks DATE OF VISIT: 11/29/2017 Jason Lehman Dec 01, 2017 13:42
[2017-12-01 16:00] VITALS: BP 133/67; PULSE 86; RESP 18; TEMP 99.8; O2SAT 97
--- NOTE | 2017-12-03 07:58 | MD ---
cc: Jason Ponce MD DATE OF DISCHARGE: 12/01/2017 ADMITTING DIAGNOSIS: Severe degenerative osteoarthritis of the right knee. DISCHARGE DIAGNOSIS: Severe degenerative osteoarthritis of the right knee. HISTORY OF PRESENT ILLNESS: Mr. Benitez is an 82-year-old male who presented to orthopedic clinic at [place] for evaluation by Dr. Jason Ponce regarding progressive right knee pain. Patient states the right knee pain has been bothering him for many years and is currently inhibiting his ability to ambulate safely. He notes he has constant pain and repeat right knee effusions limiting range of motion. He has had to use a cane for ambulation. He notes he has no alleviating factors at this point in time, although in the past, he has tried medications, bracing, physical therapy, home exercises, multiple corticosteroid injections, as well as repeat aspirations without relief of symptoms. He does have x-ray evidence of severe degenerative osteoarthritis of the right knee. While in the office, patient was counseled on his diagnosis and treatment options. Risks, benefits, indications are discussed. Patient did elect to proceed with surgical intervention to include a right total knee arthroplasty. Date of surgery 11/28/2017, right total knee arthoplasty. Postop after surgery, patient admitted to [facility] where he received appropriate medical management, pain control, DVT prophylaxis as well as physical therapy. DISCHARGE: Once being discharged from the hospital, patient is cleared to go to a group home facility. He is in stable condition. He may weightbear as tolerated. He has been instructed on appropriate wound care management. He has been provided prescriptions for pain control as well as DVT prophylaxis medication. He has also been provided a followup appointment in approximately 2 weeks from date of surgery. Patient and the patient's daughter, who is in the room, have asked appropriately questions, which have been answered. Patient has been discharged. Dictated by FRITZ Garcia MD DAMIEN Dejesus/JULIO , 08:31 AM , 08:27 PM
== END 2017-12-01 17:28 | DRG 470 ==
LOC: HSDC 06:35 → HSDI 07:15 → N06A 14:40
PROVIDERS: ADMIT Orthopaedic Surgery Sports Medicine; ATTEND Orthopaedic Surgery Sports Medicine
PROC: 3E0T3BZ Introduction of Anesthetic Agent into Peripheral Nerves and Plexi, Percutaneous Approach (ICD-10-PCS; 2017-11-28)
PROC: 0SRC0J9 Replacement of Right Knee Joint with Synthetic Substitute, Cemented, Open Approach (ICD-10-PCS; principal; 2017-11-28 09:44)
DX: M17.11 Unilateral primary osteoarthritis, right knee (principal); M24.461 Recurrent dislocation, right knee; M25.761 Osteophyte, right knee; I25.10 Atherosclerotic heart disease of native coronary artery without angina pectoris; E03.9 Hypothyroidism, unspecified; E78.5 Hyperlipidemia, unspecified; K21.9 Gastro-esophageal reflux disease without esophagitis; N40.0 Benign prostatic hyperplasia without lower urinary tract symptoms; H35.30 Unspecified macular degeneration; Z87.891 Personal history of nicotine dependence; Z95.0 Presence of cardiac pacemaker
CPT/HCPCS: 73560; 80048; 82948; 85027; 86850; 86900; 86901; 93971; 94150; C1776; C9290; J0690; J0735; J1100; J1170; J1580; J1650; J1885; J2250; J2270; J2405; J2795; J3010; J3370; J7030; J7050; J7120; L1830